=== PATIENT | male | born 2000 | race Caucasian/White ===

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

== ENCOUNTER 2020-04-20 18:14 | Emergency (ER) | payer BC, SELFPAY ==
[2020-04-20 18:33] VITALS: BP 136/91; PULSE 90; RESP 18; TEMP 36.9; O2SAT 98; BMI 20.9
--- NOTE | 2020-04-20 18:45 | HMH.EDUTC ---
[facility] Disposition Clinical Impression: Body piercing Disposition: Home, Self-Care Condition on Discharge: Good Additional Instructions: Keep area clean and dry *Watch for signs of infection such as redness, drainage etc and if seen go straight to your Family Doctor Return if needed DO not replace piercing in your lip, if you get a body part pierced make sure that it is performed by a trained professional Straight to ER if any life threatening symptoms Hygiene: You must maintain better hygiene. This will be good for the healing of your lip piercing. Keep It Dry: Try to keep your piercing dry. Yes, it may indeed become difficult to keep it dry all the time, but this is good for your lip piercing aftercare. Soft Tooth [place]: You must use a soft toothbrush with soft ends. Carefully use it to avoid any irritation. Rinse Your Mouth: Always rinse your mouth after having a meal. This practice is good as a lip piercing aftercare. Gargle: You must rinse with salt-water at least 3-4 times a day. You can make salt-water using simple steps mentioned below. Mouth Wash: Use a good anti-bacterial mouth wash. It is important to keep your inner mouth clean because, in several lip/labret piercings, you get a perforation through the lip. Referrals: Claude Ellsworth APRN [Primary Care Provider] - As needed Medical Decision Making - Moris Inquiry Pt receiving controlled substance: No Moris was queried for this patient: No Vital Signs: 04/20/20 18:33 Temperature 98.4 F Temperature Source Oral Pulse Rate [Radial] 90 Respiratory Rate 18 Blood Pressure [Right Arm] 136/91 H Blood Pressure Mean [Right Arm] 106 Blood Pressure Source [Right Arm] Automatic Cuff Blood Pressure Position [Right Arm] Sitting 02 Sat by Pulse Oximetry 98 Oxygen Delivery Method Room Air [facility] HPI - General Stated complaint: Lip piercing stuck inside of mouth Time Seen by Provider: 04/20/20 18:46 Mode of Arrival: Ambulatory Source of Information: Patient Limitations: No Limitations Description of Symptoms (Recalled from Triage Doc. by RN): lip piercing stuck HEENT Symptoms (Recalled from RN notes): No Resp Symptoms (Recalled from RN notes): No Skin Symptoms (Recalled from RN notes): Yes MS Symptoms (Recalled from RN notes): No Functional Status (Recalled from RN notes): wnl - History of Present Illness Provider Complaint: Patient states that he had his lower lip pierced a few days ago and noticed las night that he was having some swelling in his lip and looked like the piercing was going into his lip States that he tried to have several family members help to remove it and was unable to get it out so he come in to see if he could get it removed - Related Data Home Medications Medication Instructions Recorded Confirmed Fluoxetine HCl 20 mg PO DAILY 12/09/19 12/09/19 Previous Rx's Medication Instructions Recorded Nabumetone 750 mg PO BID 10 Days #20 tab 12/09/19 Allergies Allergy/AdvReac Type Severity Reaction Status Date / Time ziprasidone [From Geodon] Allergy Intermediate Verified 12/21/19 19:21 - Worker's Comp Is this a Worker's Comp case?: No [facility] History - Hepatitis A Screen Drug use history?: No High risk sexual behaviors?: No History of sexually transmitted infection?: No Currently employed?: No Childcare worker?: No Do you have indoor plumbing?: Yes Do you have electricity?: Yes Attestation statement:: This patient has been screened for Hepatitis A risk factors. I have reviewed the patient's past medical history: Yes Medical History: Reports:: Depression Denies:: Diabetes Mellitus Type 1, Diabetes Mellitus Type 2 Other Surgeries: Yes: No Previous Surgery Amputation: No Fractures: No - Social History Smoking Status: Current every day smoker Tobacco Type: cigarettes # Packs/Day (cigarettes): 1 Alcohol Intake: never Alcohol Intake Frequency:: holidays/special occasions only Substance Use Type: denies use, marijuana O
[2020-04-20 18:57] VITALS: BP 136/91; PULSE 90; RESP 18; TEMP 36.9; O2SAT 98
== END 2020-04-20 19:02 | disposition home or self-care (01) ==
PROVIDERS: Emergency Provider Nurse Practitioner; PCP Nurse Practitioner Family
DX: S00.551A Superficial foreign body of lip, initial encounter (principal); F33.1 Major depressive disorder, recurrent, moderate; F17.210 Nicotine dependence, cigarettes, uncomplicated
CPT/HCPCS: 10120; 99202

== ENCOUNTER 2020-06-09 16:43 | Emergency (ER) | payer BC, SELFPAY ==
[2020-06-09 17:20] VITALS: BP 120/71; PULSE 88; RESP 20; TEMP 36.7; O2SAT 98; BMI 21.9
--- NOTE | 2020-06-09 17:55 | HMH.EDUTC ---
[facility] [place] Disposition Clinical Impression: Encounter for laboratory testing for COVID-19 virus URI (upper respiratory infection) Qualifiers: URI type: unspecified URI Qualified Code(s): J06.9 - Acute upper respiratory infection, unspecified Disposition: Home, Self-Care Condition on Discharge: Good Instructions: Sore Throat, DI for Fever (Symptom) -- Adult, DI for COVID-19 (Suspected or Confirmed ), COVID-19 Viral Test, COVID-19: Testing and Tracing, Preventing the Spread of Coronavirus Discharge Instructions Additional Instructions: *Monitor Temp, Over the counter Motrin or Tylenol as directed/as needed Tylenol every 4 hours and Motrin every 6 hours (as long as your family doctor has told you that you can take it) for fever or pain. and straight to ER if unable to lower temp less than 101.0 after medication given *Warm salt water gargles may help to soothe the throat *Throat Lozenges *Warm fluids like tea with honey may help to soothe the throat *Sleep elevated *Humidifier/Vaporizer Follow up IMMEDIATELY for new or worsening symptoms or no Noticeable improvement over the next 48-72 hours. 911 for difficulty breathing or swallowing You were tested for today for COVID19 your test result should be back in the next 24-48 hours, you may call to the [facility] to see if your test results are back in the next 48 hours [phone] [facility] hours are 9am-9pm You was given a handout with instructions for Self Quarantine and Self isolation for while you wait on test results and what to do if they are positive If you are positive the Health Dept will be contacting you also Prescriptions: Azithromycin [Z-Jj 250mg Tab] 250 mg PO DIRECTED #6 tab Transmission Status: Pending to [facility] Referrals: Claude Ellsworth APRN [Primary Care Provider] - As needed Forms: Work/School Release Time of Disposition: 18:03 Medical Decision Making - Moris Inquiry Pt receiving controlled substance: No Moris was queried for this patient: No Vital Signs: 06/09/20 17:20 Temperature 98.1 F Temperature Source Oral Pulse Rate [Right Brachial] 88 Respiratory Rate 20 Blood Pressure [Right Arm] 120/71 Blood Pressure Mean [Right Arm] 87 Blood Pressure Source [Right Arm] Automatic Cuff Blood Pressure Position [Right Arm] Sitting 02 Sat by Pulse Oximetry 98 Oxygen Delivery Method Room Air Orders (Tests/Meds): ORDERS Category Date Time Status Covid-19 Nasal PCR Sendout [facility] Stat Lab 06/09/20 17:16 Ordered [facility] HPI - General Stated complaint: SORE THROAT WANTS COVID TEST Time Seen by Provider: 06/09/20 17:55 Mode of Arrival: Ambulatory Source of Information: Patient Limitations: No Limitations Description of Symptoms (Recalled from Triage Doc. by RN): PATIENT C/O FATIGUE AND NOT FEELING WELL. REQUESTING COVID TEST; NO KNOWN EXPOSURE HEENT Symptoms (Recalled from RN notes): No Resp Symptoms (Recalled from RN notes): No Skin Symptoms (Recalled from RN notes): No MS Symptoms (Recalled from RN notes): No Functional Status (Recalled from RN notes): WNL - History of Present Illness Provider Complaint: Patient states that for the last few days he has not been feeling well States that he has felt tired and achy States that today his throat was hurting worse and his tonsils was swollen State that he come in to get a COVID test and see if he could get something for his sore throat - Related Data Home Medications Medication Instructions Recorded Confirmed Fluoxetine HCl 20 mg PO DAILY 12/09/19 12/09/19 Previous Rx's Medication Instructions Recorded Nabumetone 750 mg PO BID 10 Days #20 tab 12/09/19 Azithromycin [Z-Jj 250mg Tab] 250 mg PO DIRECTED #6 tab 06/09/20 Allergies Allergy/AdvReac Type Severity Reaction Status Date / Time ziprasidone [From [facility]] Allergy Intermediate Verified 12/21/19 19:21 - Worker's Comp Is this a Worker's Comp case?: No [facility] History - Hepatitis A Screen Drug use history?: N
[2020-06-09 18:11] VITALS: BP 120/71; PULSE 88; RESP 20; TEMP 36.7; O2SAT 98
== END 2020-06-09 18:16 | disposition home or self-care (01) ==
PROVIDERS: Emergency Provider Nurse Practitioner; PCP Nurse Practitioner Family
DX: Z20.828 Contact with and (suspected) exposure to other viral communicable diseases (principal); J06.9 Acute upper respiratory infection, unspecified; F33.1 Major depressive disorder, recurrent, moderate; Z79.899 Other long term (current) drug therapy
CPT/HCPCS: 99201; U0003; U0004

== ENCOUNTER → 2020-07-05 10:40 | Outpatient (CLI) | payer BC, SELFPAY | PROVIDERS: PCP Nurse Practitioner Family; Visit Provider Nurse Practitioner Family | DX: Z20.822 Contact with and (suspected) exposure to COVID-19 (principal) | CPT/HCPCS: U0003 ==

== ENCOUNTER 2020-08-12 11:38 | Emergency (ER) | payer BC, SELFPAY ==
--- NOTE | 2020-08-12 12:22 | XR_ITS ---
PROCEDURE: XR HAND RT MIN 3V CLINICAL INDICATION: injury Pain pain COMPARISON: CR HANDL3 HAND-LT-3 VIEWS from 10/20/2016 CR Hand R from 01/07/2019 CR XR HAND RT MIN 3V from 08/20/2019 CR XR HAND RT MIN 3V from 12/09/2019 FINDINGS: No fracture or dislocation. No lytic or blastic change. There is normal mineralization. The joint spaces are well-preserved. No significant degenerative/arthritic changes. No erosive changes evident. Other findings:None. IMPRESSION: No acute findings. Dictated by: Gabino Capps MD 08/12/2020 13:41 Gabino Capps MD in [place] 08/12/2020 13:41
[2020-08-12 12:31] VITALS: BP 126/75; PULSE 66; RESP 14; TEMP 36.9; O2SAT 98; BMI 21.4
--- NOTE | 2020-08-12 12:50 | HMH.EDUTC ---
[facility] [place] Clinical Impression: Hand contusion Qualifiers: Encounter type: initial encounter Laterality: right Qualified Code(s): S60.221A - Contusion of right hand, initial encounter Disposition: Home, Self-Care Condition on Discharge: Good Instructions: How To Perform RICE (Rest, Ice, Compress, Elevate), How to Apply an Rod Wrap Additional Instructions: *RICE, Rest the extremity, Ice 15-20 minutes 3-4 times daily, Compress- wear the rod wrap as discussed as much as possible to help reduce swelling and pain, Elevate the extremity when at rest *Rod wrap is for support and help control swelling, use it except in the shower. Be sure that is not to tight but not to loose either *Elevate when resting *Ibuprofen every 6-8 hours as needed for pain an inflammation as directed on package. If need something more can take Tylenol in between doses of Ibuprofen to help Immediately follow up with your family doctor for new or worsening of symptoms, or no noticeable improvement over the next 3-5 days May call back to the [facility] tomorrow for the official Radiology reading of your xray Return if needed Referrals: Claude Ellsworth APRN [Primary Care Provider] - As needed Time of Disposition: 12:54 Medical Decision Making - Moris Inquiry Pt receiving controlled substance: No Moris was queried for this patient: No Vital Signs: 08/12/20 12:31 Temperature 98.4 F Temperature Source Oral Pulse Rate [Right] 66 Respiratory Rate 14 Blood Pressure [Right Arm] 126/75 Blood Pressure Mean [Right Arm] 92 Blood Pressure Source [Right Arm] Automatic Cuff Blood Pressure Position [Right Arm] Sitting 02 Sat by Pulse Oximetry 98 Oxygen Delivery Method Room Air Orders (Tests/Meds): ORDERS Category Date Time Status XR hand RT min 3V Stat Exams 08/12/20 12:22 Taken - Radiology Data #1 Image(s): Hand Image Reviewed: Yes I reviewed the patient's radiology image Preliminary Findings: No Fracture Seen [facility] [place] - General Stated complaint: AO [id number] r hand pain, not WC Time Seen by Provider: 08/12/20 12:50 Mode of Arrival: Ambulatory Source of Information: Patient Limitations: No Limitations Description of Symptoms (Recalled from Triage Doc. by RN): PT STATES HE PUNCHED A PAINT CAN WITH HIS R HAND AND IS HAVING PAIN. HEENT Symptoms (Recalled from RN notes): No Resp Symptoms (Recalled from RN notes): No Skin Symptoms (Recalled from RN notes): No MS Symptoms (Recalled from RN notes): Yes (R HAND PAIN) Functional Status (Recalled from RN notes): NA - History of Present Illness Provider Complaint: Patient states that he got mad a couple days ago and punched a paint can State that then last night he dropped a box of beef stew on it and today it looked swollen again and had pain when he would move his right knuckles/Hand - Related Data Previous Rx's Medication Instructions Recorded azithromycin 250 mg tablet 250 mg PO QDAY 5 Days #6 tab 07/04/20 fluticasone propionate 50 1 spray INTRANASAL QDAY #9.9 ml 07/04/20 mcg/actuation nasal spray,suspension Allergies Allergy/AdvReac Type Severity Reaction Status Date / Time ziprasidone [From [facility]] Allergy Intermediate Verified 08/12/20 12:36 - Worker's Comp Is this a Worker's Comp case?: No [facility] History - Hepatitis A Screen Drug use history?: No High risk sexual behaviors?: No History of sexually transmitted infection?: No Currently employed?: No Childcare worker?: No Do you have indoor plumbing?: Yes Do you have electricity?: Yes Attestation statement:: This patient has been screened for Hepatitis A risk factors. I have reviewed the patient's past medical history: Yes Medical History: Reports:: Depression Denies:: Diabetes Mellitus Type 1, Diabetes Mellitus Type 2 Other Surgeries: Yes: No Previous Surgery Amputation: No Fractures: No - Social History Smoking Status: Current every day smoker Tobacco Type: cigarettes # Packs/Day (cigarettes): 1 Alcoho
[2020-08-12 13:14] VITALS: BP 122/74; PULSE 69; RESP 16; TEMP 36.8
== END 2020-08-12 13:00 | disposition home or self-care (01) ==
PROVIDERS: Emergency Provider Nurse Practitioner; PCP Nurse Practitioner Family
DX: S60.221A Contusion of right hand, initial encounter (principal); W22.09XA Striking against other stationary object, initial encounter; Y92.89 Other specified places as the place of occurrence of the external cause; F17.210 Nicotine dependence, cigarettes, uncomplicated; F32.9 Major depressive disorder, single episode, unspecified
CPT/HCPCS: 73130; 99202; G0463

== ENCOUNTER → 2021-04-21 18:07 | Outpatient (CLI) | payer BC, SELFPAY ==
[2021-04-21 18:59] LABS: Basophils % 0.4 % (0.1-2.0); Eosinophils # 0.2 K/mm3 (0.0-0.4); Eosinophils % 3.1 % (0.1-12.0); Hematocrit 44.9 % (42.0-52.0); Hemoglobin 14.6 g/dL (14.1-18.0); Lymphocytes # 2.6 K/mm3 (0.7-4.5); Mean Corpuscular HGB Conc 32.5 g/dL (31.8-35.4); Mean Corpuscular Hemoglobin 30.7 pg (27.0-31.2); Mean Corpuscular Volume 94.4 fl (80-94); Monocytes # 0.6 K/mm3 (0.1-1.0); Monocytes % 7.6 % (1.7-9.3); Neutrophils # 4.3 K/mm3 (1.8-7.8); Platelet Count 296 K/mm3 (142-424); Red Blood Count 4.76 M/mm3 (4.60-6.20); Red Cell Distribution Width 12.4 % (11.5-17.5); White Blood Count 7.7 K/mm3 (4.5-13.0)
[2021-04-21 19:04] LABS: Alanine Aminotransferase 21 U/L (12-78); Albumin Level 4.5 g/dl (3.5-5.0); Albumin/Globulin Ratio 1.5 (1.1-1.8); Alkaline Phosphatase 65 U/L (38-126); Anion Gap 14.4 mEq/L (5-15); Aspartate Amino Transferase 27 U/L (17-59); Bilirubin,Total 0.3 mg/dl (0.2-1.3); Blood Urea Nitrogen 13 mg/dl (9-20); Calcium 9.7 mg/dl (8.4-10.2); Carbon Dioxide 27 mmol/L (22.0-30.0); Chloride 103 mmol/L (98-107); Chol/HDL Ratio 3.6 (1-3.5); Cholesterol 167 mg/dl (140-200); Estimated Glomerular Filt Rate 144 ml/min (>60); GFR (African American) 174 ML/MIN (>60); Glucose 88 mg/dl (74-100); HDL Cholesterol 46 mg/dl (40-60); Potassium 4.4 mmoL/L (3.5-5.1); Sodium 140 mmol/L (136-145); Total Protein,Serum 7.5 g/dl (6.3-8.2); Triglycerides 58 mg/dl (30-150); VLDL Cholesterol 12 mg/dL (0-40)
[2021-04-21 19:14] LABS: Direct LDL Cholesterol 96.21 mg/dL (100-129)
[2021-04-21 19:20] LABS: 25-OH Vitamin D, Total 37.3 ng/mL (30-100); T4 (Thyroxine) 8.7 ug/dl (5.53-11.0)
[2021-04-21 19:33] LABS: Thyroid Stimulating Hormone 1.19 uIU/mL (0.465-4.68)
== END ==
PROVIDERS: Visit Provider Nurse Practitioner Family
DX: Z00.00 Encounter for general adult medical examination without abnormal findings (principal)
CPT/HCPCS: 80053; 80061; 82306; 84436; 84443; 85025

== ENCOUNTER 2022-05-21 15:13 | Emergency (ER) | payer BC, SELFPAY ==
[2022-05-21 16:40] VITALS: BP 152/99; PULSE 82; RESP 16; TEMP 36.8; O2SAT 98; BMI 20.7
--- NOTE | 2022-05-21 16:46 | EXP.UTC ---
Discharge Plan Disposition Patient Disposition: Home, Self-Care Condition: Good Prescriptions Prescriptions: New ibuprofen [IBU] 800 mg tablet 800 mg PO Q8HP PRN (Reason: Moderate Pain) Qty: 30 0RF amoxicillin-pot clavulanate 875-125 mg Tablet 1 tab PO Q12H Qty: 20 0RF No Action hydroxyzine HCl 25 mg tablet 25 mg PO TID PRN (Reason: itching) Qty: 60 0RF Referrals Follow up/Referrals: Chris Mart MD [Primary Care Provider] - See instructions Activity Restrictions/Add. Instructions Additional Instructions/Restrictions: Drink plenty of fluids. Take the ibuprofen for pain. Take the medications as directed. Follow up with your regular doctor. GO TO THE ER FOR ANY WORSENING SYMPTOMS Get yourself an appointment with your dentist jos. Clinical Impressions Clinical Impression: Pain, dental, Dental abscess, Jaw pain Instructions Patient Instructions: Tooth Abscess, DI for Tooth Abscess Discharge ED Provider: Ayo العراقي [facility] General Stated complaint: dental pain Mode of Arrival: Ambulatory Source of Information: Patient Limitations: No Limitations Time Seen by Provider: 05/21/22 16:45 Description of Symptoms (Recalled from Triage Doc. by RN): pt comes in with c/o left lower side jaw pain. pts face is swollen. symptoms began yesterday HEENT Symptoms (Recalled from RN notes): Yes Resp Symptoms (Recalled from RN notes): No Skin Symptoms (Recalled from RN notes): No MS Symptoms (Recalled from RN notes): No Functional Status (Recalled from RN notes): n/a History of Present Illness Provider Complaint: He has several decayed teeth in his left lower jaw. He has having pain and swelling of his gum around them. He is having severe tooth pain at times also. He denies any fever. Related Data Previous Rx's Medication Instructions Recorded hydroxyzine HCl 25 mg tablet 25 mg PO TID PRN itching #60 tabs 04/21/21 amoxicillin 875 mg-potassium 1 tab PO Q12H #20 tabs 05/21/22 clavulanate 125 mg tablet ibuprofen 800 mg tablet (IBU) 800 mg PO Q8HP PRN Moderate Pain 05/21/22 #30 tabs Allergies Allergy/AdvReac Type Severity Reaction Status Date / Time [facility] Allergy Intermediate Verified 05/21/22 16:43 Worker's Comp Is this a Worker's Comp case?: No [facility] Disclaimer: The information contained in this section may have been updated after the patient was seen, as this information can be updated by other users. Social History Smoking Status: Current every day smoker tobacco type: cigarettes packs per day: 1 second hand exposure: Yes alcohol intake: never substance use type: denies use and marijuana current occupational status: employed Travel in the last 8 weeks: None housing: house number of children: 0 ROS Obtained: Yes All systems reviewed & no additional complaints except as documented Constitutional Constitutional: Denies chills and Denies fever(s) Eyes Eyes: Denies eye discharge ENT Ears, Nose, Mouth, and Throat: Reports as per HPI, Reports dental pain, Denies dizziness, Denies otalgia and Denies sore throat Cardiovascular Cardiovascular: Denies chest pain Respiratory Respiratory: Denies shortness of breath, Denies chest congestion, Denies cough, Denies stridor and Denies wheezing Gastrointestinal Gastrointestingal: Denies nausea or vomiting Musculoskeletal Musculoskeletal: Reports system reviewed and no additional complaints, except as documented and Denies arthralgias Integumentary/Breasts Skin/Breast: Denies rash Neurologic Neurologic: Denies dizziness and Denies paresthesias Allergic/Immunologic Allergic/Immunologic: Denies wheezing Physical Exam General General appearance: alert and in no apparent distress Head Head exam: atraumatic, normocephalic and normal inspection Eye Eye exam: Present normal appearance, PERRL and EOMI ENT ENT exam: Present mucous membran
[2022-05-21 17:06] VITALS: BP 152/99; PULSE 82; RESP 16; TEMP 36.8
== END 2022-05-21 17:13 | disposition home or self-care (01) ==
PROVIDERS: Emergency Provider Nurse Practitioner Family; PCP Emergency Medicine
DX: K04.7 Periapical abscess without sinus (principal); K08.89 Other specified disorders of teeth and supporting structures
CPT/HCPCS: 99212; G0463

== ENCOUNTER → 2022-06-24 06:04 | Outpatient (CLI) | payer BC, SELFPAY ==
[2022-06-24 18:09] LABS: Adenovirus,PCR Not Detected (NotDetected); Bordetella Pertussis Not Detected (NotDetected); Chlamydophila Pneumoniae, PCR Not Detected (NotDetected); Coronavirus 19, PCR Not Detected (NotDetected); Coronavirus 229E Not Detected (NotDetected); Coronavirus NL63 Not Detected (NotDetected); Coronavirus OC43 Not Detected (NotDetected); Coronovirus HKU1,PCR Not Detected (NotDetected); Human Metapneumovirus Not Detected (NotDetected); Influenza A, PCR Not Detected (NotDetected); Influenza AH1, 2009 Not Detected (NotDetected); Influenza AH1, PCR Not Detected (NotDetected); Influenza AH3,PCR Not Detected (NotDetected); Influenza B, PCR Not Detected (NotDetected); Mycoplasma Pneumoniae, PCR Not Detected (NotDetected); Parainfluenza 1, PCR Not Detected (NotDetected); Parainfluenza 2, PCR Not Detected (NotDetected); Parainfluenza 3, PCR Not Detected (NotDetected); Parainfluenza 4, PCR Not Detected (NotDetected); Respiratory Syncytial Virus Not Detected (NotDetected); Rhinovirus/Enterovirus Not Detected (NotDetected)
== END ==
PROVIDERS: PCP Nurse Practitioner Family; Visit Provider Nurse Practitioner Family
DX: J02.9 Acute pharyngitis, unspecified (principal); R05.9 Cough, unspecified; R09.81 Nasal congestion
CPT/HCPCS: 87581; 87632; 87798; C9803; U0003; U0005

== ENCOUNTER 2022-08-08 14:56 | Emergency (ER) | payer BC, SELFPAY ==
[2022-08-08 15:05] VITALS: BP 138/92; PULSE 67; RESP 19; TEMP 37; O2SAT 99
--- NOTE | 2022-08-08 15:14 | EXP.UTC ---
Discharge Plan Disposition Patient Disposition: Home, Self-Care Prescriptions Prescriptions: New amoxicillin-pot clavulanate 875-125 mg Tablet 1 tab PO Q12H Qty: 20 0RF ibuprofen 600 mg tablet 600 mg PO Q6HP PRN (Reason: Moderate Pain) Qty: 20 0RF No Action ondansetron 4 mg tablet,disintegrating 4 mg PO Q8H PRN (Reason: nausea and vomiting) Qty: 30 0RF cetirizine [Zyrtec] 10 mg tablet 10 mg PO DAILY PRN (Reason: allergy symptoms) Qty: 30 2RF fluticasone propionate [Flonase Allergy Relief] 50 mcg/actuation spray,suspension 1 spray intranasal DAILY Qty: 16 2RF Rx Instructions: administer into each nostril Referrals Follow up/Referrals: Jessica Daniel PA [Primary Care Provider] - See instructions Activity Restrictions/Add. Instructions Additional Instructions/Restrictions: Call dentist for appointment Use dental balls as described in [facility] Take oral antibiotics as prescribed Return if needed Follow up with your Family Doctor as directed Straight to ER if any life threatening symptoms Clinical Impressions Clinical Impression: Dental abscess Instructions Patient Instructions: Tooth Abscess Discharge ED Provider: Renata Hwang [facility] [place] General Stated complaint: dental pain Time Seen by Provider: 08/08/22 15:15 History of Present Illness Provider Complaint: Patient states that he is scheduled in a couple weeks to have his wisdom tooth cut out on left lower States that it is broken off and he started having pain in his left lower jaw that he noticed earlier it was starting to swell and hurting down into his neck area so he came in to get on some antibiotics and something to help numb it until they get him in Related Data Previous Rx's Medication Instructions Recorded cetirizine 10 mg tablet (Zyrtec) 10 mg PO DAILY PRN allergy 06/24/22 symptoms #30 tabs fluticasone propionate 50 1 spray intranasal DAILY #16 grams 06/24/22 mcg/actuation nasal spray,suspension (Flonase Allergy Relief) ondansetron 4 mg disintegrating 4 mg PO Q8H PRN nausea and 06/24/22 tablet vomiting #30 tabs amoxicillin 875 mg-potassium 1 tab PO Q12H #20 tabs 08/08/22 clavulanate 125 mg tablet ibuprofen 600 mg tablet 600 mg PO Q6HP PRN Moderate Pain 08/08/22 #20 tabs Allergies Allergy/AdvReac Type Severity Reaction Status Date / Time ziprasidone [From [facility]] Allergy Intermediate Verified 06/24/22 14:29 [facility] Disclaimer: The information contained in this section may have been updated after the patient was seen, as this information can be updated by other users. Medical History (Updated 08/08/22 @ 15:21 by Renata Hwang APRN) Anxiety Depression Social History Smoking Status: Current every day smoker tobacco type: cigarettes packs per day: 1 second hand exposure: Yes alcohol intake: never substance use type: denies use and marijuana current occupational status: employed Travel in the last 8 weeks: None housing: house number of children: 0 ROS Obtained: Yes All systems reviewed & no additional complaints except as documented and Yes Systems reviewed as appropriate & no additional complaints except as documented Constitutional Constitutional: Reports system reviewed and no additional complaints, except as documented, Reports as per HPI and Denies fever(s) ENT Ears, Nose, Mouth, and Throat: Reports system reviewed and no additional complaints, except as documented, Reports as per HPI and Reports dental pain Cardiovascular Cardiovascular: Reports system reviewed and no additional complaints, except as documented and Reports as per HPI Respiratory Respiratory: Reports system reviewed and no additional complaints, except as documented and Reports as per HPI Gastrointestinal Gastrointestingal: Reports system reviewed and no additional complaints, except as documented and as per HPI Physical Exam General Gene
[2022-08-08 15:24] VITALS: BP 138/92; PULSE 67; RESP 19; TEMP 37; O2SAT 99
== END 2022-08-08 15:27 | disposition home or self-care (01) ==
PROVIDERS: Emergency Provider Nurse Practitioner; PCP Physician Assistant
DX: K04.7 Periapical abscess without sinus (principal)
CPT/HCPCS: 99212; 99213; G0463

== ENCOUNTER → 2022-08-11 11:30 | Outpatient (CLI) | payer BC, SELFPAY ==
[2022-08-11 15:45] LABS: Basophils # 0.1 K/mm3 (0-0.2); Basophils % 0.7 % (0.1-2.0); Eosinophils # 0.2 K/mm3 (0.0-0.4); Eosinophils % 2.3 % (0.1-12.0); Hematocrit 42.4 % (42.0-52.0); Hemoglobin 14.4 g/dL (14.1-18.0); Lymphocytes # 2.1 K/mm3 (0.7-4.5); Lymphocytes % 29.7 % (10-50); Mean Corpuscular HGB Conc 33.9 g/dL (31.8-35.4); Mean Corpuscular Hemoglobin 31.4 pg (27.0-31.2); Mean Corpuscular Volume 92.4 fl (80-94); Monocytes # 0.7 K/mm3 (0.1-1.0); Monocytes % 9.8 % (1.7-9.3); Neutrophils # 4.1 K/mm3 (1.8-7.8); Neutrophils % 57.4 % (37.0-80.0); Platelet Count 318 K/mm3 (142-424); Red Blood Count 4.59 M/mm3 (4.60-6.20); Red Cell Distribution Width 12.6 % (11.5-17.5); White Blood Count 7.2 K/mm3 (4.8-10.8)
[2022-08-11 16:43] LABS: Alanine Aminotransferase 21 U/L (12-78); Albumin Level 5.4 g/dl (3.5-5.0); Albumin/Globulin Ratio 1.7 (1.1-1.8); Alkaline Phosphatase 62 U/L (38-126); Anion Gap 11.8 mEq/L (5-15); Aspartate Amino Transferase 25 U/L (17-59); Bilirubin,Total 0.6 mg/dl (0.2-1.3); Blood Urea Nitrogen 16 mg/dl (9-20); Carbon Dioxide 27 mmol/L (22.0-30.0); Chloride 104 mmol/L (98-107); Chol/HDL Ratio 4.1 (1-3.5); Cholesterol 174 mg/dl (140-200); Estimated Glomerular Filt Rate 142 ml/min (>60); GFR (African American) 172 ML/MIN (>60); Globulin 3.1 g/dL (1.3-3.2); Glucose 101 mg/dl (74-100); HDL Cholesterol 42 mg/dl (40-60); Potassium 3.8 mmoL/L (3.5-5.1); Sodium 139 mmol/L (136-145); Total Protein,Serum 8.5 g/dl (6.3-8.2); Triglycerides 62 mg/dl (30-150); VLDL Cholesterol 12 mg/dL (0-40)
[2022-08-11 16:54] LABS: Direct LDL Cholesterol 101.19 mg/dL (100-129)
[2022-08-11 17:14] LABS: Thyroid Stimulating Hormone 1.78 uIU/mL (0.465-4.68)
[2022-08-13 13:24] LABS: HIV Screen 4th Generation wRfx Non Reactive (Non Reactive); Hep A Ab, Total Positive (Negative); Hep B Core Ab, Total Negative (Negative); Hep B Surface Ab, Qual Non Reactive (.)
[2022-08-14 02:09] LABS: ALT (SGPT) P5P 17 IU/L (0-55); Alpha 2-Macroglobulins, Qn 203 mg/dL (110-276); Apolipoprotein A-1 118 mg/dL (101-178); Bilirubin, Total 0.3 mg/dL (0.0-1.2); Fibrosis Score 0.08 (0.00-0.21); GGT 23 IU/L (0-65); Haptoglobin 214 mg/dL (17-317); Necroinflammat Activity Grade A0-No activity (.); Necroinflammat Activity Score 0.04 (0.00-0.17)
[2022-08-21 21:09] LABS: Hepatitis B Surface Antigen NEGATIVE; Hepatitis C Antibody NON REACTIVE
== END ==
PROVIDERS: PCP Nurse Practitioner Family; Visit Provider Nurse Practitioner Family
DX: Z00.00 Encounter for general adult medical examination without abnormal findings (principal); R53.83 Other fatigue; Z78.9 Other specified health status; N39.0 Urinary tract infection, site not specified; Z11.4 Encounter for screening for human immunodeficiency virus [HIV]
CPT/HCPCS: 80053; 80061; 81596; 84443; 85025; 86703; 86704; 86706; 86708; 87086; 87340; 87380; 87522; 87902; G0432

== ENCOUNTER 2024-02-15 11:25 | Outpatient (CLI) | payer BC, SELFPAY ==
--- NOTE | 2024-02-15 11:29 | XR_ITS ---
FINAL REPORT CLINICAL HISTORY: R Hand pain COMPARISON: None FINDINGS: RIGHT HAND Three views demonstrate no acute fracture or dislocation. The visualized joint spaces are normally aligned. The soft tissues are unremarkable. IMPRESSION: No acute bony abnormality. Reviewed, Interpreted and Dictated by Cristino Oliveros MD Transcribed by Aye Alex Authenticated and [facility]
== END 2024-02-15 23:59 | disposition home or self-care (01) ==
LOC: RAD 11:27
PROVIDERS: PCP Nurse Practitioner Family; Visit Provider Nurse Practitioner Family
DX: M79.641 Pain in right hand (principal)
CPT/HCPCS: 73130